=== PATIENT | female | born 1985 | race Caucasian/White ===

== ENCOUNTER 2016-08-24 14:15 | Observation (INO) | payer BC ==
[2016-08-24] MEDS ORDERED: SODIUM CHLORIDE 1,000 ML IV ONE (14:33)
--- NOTE | 2016-08-24 14:35 | PDOC ---
History of Present Illness - General Chief Complaint: Head/Neck problem Stated Complaint: NUMBNESS Time Seen by Provider: 08/24/16 14:33 History Source: Patient Exam Limitations: No Limitations - History of Present Illness Initial Comments: 08/24/16 14:35 31y F no pmhx presents with complaint of b/l hand numbness x 1 month. pt states she has been having discomfort in her hands b/l worse in the evenings and sometimes worsened positionally, there is no associated weakness, numbness/ tingling/weakness of other areas on her legs or face. pt reports similar episodes of this in the past, for approx 2 weeks this past dec and occasionally previously. The pt deneis recent illness, fever/chills, cp, sob, palpitations, vomiting, vision changes, urinary or bowel incontinence. no known familial neurlogic history Past History - Past Medical History Allergies/Adverse Reactions: Allergies Allergy/AdvReac Type Severity Reaction Status Date / Time No Known Allergies Allergy Verified 08/24/16 15:06 Home Medications: Ambulatory Orders Duloxetine HCl [Cymbalta] 120 mg PO DAILY 08/24/16 Prazosin HCl [Minipress] 6 mg PO HS 08/24/16 Other medical history: denies - Psycho/Social/Smoking Cessation Hx Anxiety: No Suicidal Ideation: No Smoking History: Current every day smoker Have you smoked in the past 12 months: Yes Number of Cigarettes Smoked Daily: 3 Information on smoking cessation initiated: No Hx Alcohol Use: No Drug/Substance Use Hx: No Review of Systems - Review of Systems Able to Perform ROS?: Yes Comments:: 08/24/16 14:39 Constitutional - no reported Fever, Chills, weakness, HEENT: no reported vision changes, sore throat Respiratory: no reported cough, sob, hemoptysis Cardiac: no reported chest pain, palpitations, light headedness, leg swelling Abd/GI: + nausea, no reported abd pain, vomiting, blood per rectum, melena, diarrhea : no reported dysuria, frequency, discharge Musculskelatal - no reported back pain, joint swelling skin - no reported bruising, erythema, rash neurological: +b/l hand numbness/tingling no reported headache, ataxia, weakness hematologic: no reported anemia, easy bruising, easy bleeding *Physical Exam - Vital Signs Last Vital Signs Temp Pulse Resp BP Pulse Ox 98.1 F 107 H 20 133/120 100 08/24/16 14:27 08/24/16 14:27 08/24/16 14:27 08/24/16 14:27 08/24/16 14:27 - Physical Exam Comments: 08/24/16 15:18 GENERAL: The patient is awake, alert, and fully oriented, Nontoxic - in no acute distress. HEAD: Normocephalic, atraumatic. EYES: extraocular movements intact, sclera anicteric, conjunctiva clear. ENT: Normal voice, Moist mucous membranes. NECK: Normal range of motion, supple LUNGS: Breath sounds equal, clear to auscultation bilaterally. No wheezes, no rhonchi, no rales. HEART: Regular rate and rhythm, normal S1 and S2 without murmur, rub or gallop. ABDOMEN: Soft, nontender, normoactive bowel sounds. No guarding, no rebound. . No CVA tenderness EXTREMITIES: Normal range of motion, no edema. No clubbing or cyanosis. No cords, erythema, or tenderness. No signs of muscle atrophy NEUROLOGICAL: No facial assymetry, Normal speech, PSYCH: Normal mood, normal affect. SKIN: Warm, Dry, normal turgor, NEURO: Mental status: The patient is oriented x3. Cranial nerves: Cranial nerves II through XII are intact Motor: The upper extremities are 5 over 5 in all muscle groups. The lower extremities are 5 over 5 in all muscle groups. Negative pronator drift Sensation: Sensation is intact to light touch throughout. Cerebellar: [id number] is normal in both upper extremities. rapid alternating movements are normal. Reflexes: 2+ patellar reflexes, 2+ R bicep reflex 1+ L bicep reflex Gait: Normal. Negative spurlings test Heart Score/ECG Review - ECG Impressions Comment:: 08/24/16 15:20 Twelve-lead EKG was performed and reviewed by me. There is normal sinus rhythm with a normal rate. Rate of 71 The axis is normal. The intervals are normal. There is normal R wave progression There are no ST or T wave abnormalities. Impression: Normal twelve-lead EKG ED Treatment Course - LABORATORY CBC & Chemistry Diagram: 08/25/16 06:15 08/25/16 06:15 Medical Decision Making - Medical Decision Making 08/24/16 15:21 31y F presents with intermittent episodes of hand tinging/numbness lasting for usually weeks/months at a time. on exam the pt in no distress, vitals noted for mild tachycardia, neuro exam unremarkable differential includes possible cervical radiculopathy vs metabolic derangement, consider possible ms will obtain blood work, ct cspine will reassess 08/24/16 16:02 ct spine unremarkable for stenosis or herniations cbc unremarkable labs reviewed and are unremarkable case dw np. sainz agreed with admission for further management stable for med surg will admit under dr. acuña service Case discussed in detail with admitting physician including history, physical exam and ancillary studies. Admitting physician has assumed care for the patient, will follow all pending diagnostics and will complete the evaluation and treatment. *DC/Admit/Observation/Transfer Diagnosis at time of Disposition: Bilateral hand numbness - Discharge Dispostion Condition at time of disposition: Stable Admit: Yes
[2016-08-24 14:54] LABS: BASOPHIL 0.9 % (0-2.0); EOSINOPHIL 2.4 % (0-4.5); MCH 32.3 pg (25.7-33.7); MEAN CELL VOLUME 94.8 fl (80-96); MEAN PLT VOLUME 7.7 fl (7.5-11.1); NEUTROPHILS 50.8 % (42.8-82.8); PLATELET COUNT 269 K/MM3 (134-434); RDW 12.7 % (11.6-15.6); WHITE BLOOD COUNT 7.1 K/mm3 (4.0-10.0)
[2016-08-24 14:57] VITALS: BMI 32.5
[2016-08-24 15:11] LABS: URINE APPEARANCE SLCLOUDY; URINE BILIRUBIN NEGATIVE (NEGATIVE); URINE BLOOD NEGATIVE (NEGATIVE); URINE COLOR AMBER; URINE GLUCOSE (UA) NEGATIVE (NEGATIVE); URINE KETONE NEGATIVE (NEGATIVE); URINE LEUK ESTERASE NEGATIVE (NEGATIVE); URINE NITRITE NEGATIVE (NEGATIVE); URINE PROTEIN NEGATIVE (NEGATIVE); URINE UROBILINOGEN NEGATIVE E.U./dl (0.2-1.0)
--- NOTE | 2016-08-24 15:29 | HP ---
CHIEF COMPLAINT: Hand numbness PCP: Located in [place], [place]. Last seen one year ago. HISTORY OF PRESENT ILLNESS: This is a 31 year old female with a history of anxiety, depression, and PTSD. She was previously on midodrine for hypotension, but this has been discontinued and she has been cleared by a air quality specialist. She presents today complaining of bilateral hand numbness and tingling. This symptom has been present intermittently for about two years, but has been worse for the past month and a half. Symptoms are worst at night; she reports sometimes waking up and "not being able to feel my hands at all." She also has intermittent pain in the joints of her fingers and painful pins and needles sensation. She has not had numbness/tingling in any other areas of the body. Symptoms are worse when holding a book. Episodes typically last one hour and resolve spontaneously. She denies headache, focal weakness, slurred speech, and visual changes. She has not had fevers/chills, bodyaches or weight loss. She reports fatigue. She has occasional vertigo, especially while on stairs or escalators. She does fall frequently, but states that she has always been "clumsy". She believes that she has occasional difficulty with word-finding. She denies urinary symptoms. She has alternate diarrhea and constipation, with two recent episodes of incontinence of stool. She has chronic neck/upper back pain which has never been evaluated. 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 No known family history of neurologic disorders. Allergies No Known Allergies Allergy (Verified 08/24/16 15:06) HOME MEDICATIONS: Home Medications Medication Instructions Recorded Duloxetine HCl [Cymbalta] 120 mg PO DAILY 08/24/16 Prazosin HCl [Minipress] 6 mg PO HS 08/24/16 REVIEW OF SYSTEMS CONSTITUTIONAL: Absent: fever, chills, diaphoresis, generalized weakness, malaise, loss of appetite, weight change HEENT: Absent: rhinorrhea, nasal congestion, throat pain, throat swelling, difficulty swallowing, mouth swelling, ear pain, eye pain, visual changes CARDIOVASCULAR: Absent: chest pain, syncope, palpitations, irregular heart rate, lightheadedness , peripheral edema RESPIRATORY: Absent: cough, shortness of breath, dyspnea with exertion, orthopnea, wheezing, stridor, hemoptysis GASTROINTESTINAL: Nausea, worse in morning x several years. Alternate diarrhea/ constipation with two recent episodes of fecal incontinence. Absent: abdominal pain, abdominal distension, vomiting, melena, hematochezia GENITOURINARY: Absent: dysuria, frequency, urgency, hesitancy, hematuria, flank pain, genital pain MUSCULOSKELETAL: Intermittent pain in fingers. Chronic neck/upper back pain. Absent: joint swelling SKIN: Absent: rash, itching, pallor HEMATOLOGIC/IMMUNOLOGIC: Absent: easy bleeding, easy bruising, lymphadenopathy, frequent infections ENDOCRINE: Absent: unexplained weight gain, unexplained weight loss, heat intolerance, cold intolerance NEUROLOGIC: See HPI. PSYCHIATRIC: Anxiety, depression, PTSD. Absent: suicidal or homicidal ideation, hallucinations. PHYSICAL EXAMINATION Vital Signs - 24 hr 08/24/16 08/24/16 14:27 15:08 Temperature 98.1 F Pulse Rate 107 H Pulse Rate [ 71 Apical] Respiratory 20 Rate Blood Pressure 133/120 O2 Sat by Pulse 100 Oximetry (%) GENERAL: Awake, alert, and fully oriented, in no acute distress. HEAD: Normal with no signs of trauma. EYES: Pupils equal, round and reactive to light, extraocular movements intact, sclera anicteric, conjunctiva clear. No lid lag. EARS, NOSE, THROAT: Ears normal, nares patent, oropharynx clear without exudates. Moist mucous membranes. NECK: Normal range of motion, supple without lymphadenopathy, JVD, or masses. LUNGS: Breath sounds equal, clear to auscultation bilaterally. No wheezes, and no crackles. No accessory muscle use. HEART: Regular rate and rhythm, normal S1 and S2 without murmur, rub or gallop. ABDOMEN: Soft, nontender, not distended, normoactive bowel sounds, no guarding, no rebound, no masses. No hepatomegaly or splenomegaly. MUSCULOSKELETAL: Normal range of motion at all joints. No bony deformities or tenderness. No CVA tenderness. UPPER EXTREMITIES: 2+ pulses, warm, well-perfused. No cyanosis. No clubbing. No peripheral edema. LOWER EXTREMITIES: 2+ pulses, warm, well-perfused. No calf tenderness. No peripheral edema. NEUROLOGICAL: Cranial nerves II-XII intact. Normal speech. Normal gait. Mild intention tremor. Negative Carmine's sign. Normoreflexic. 5/5 upper and lower extremity strength bilaterally, no saddle anesthesia. Midline vertebral tenderness C5/6. PSYCHIATRIC: Cooperative. Good eye contact. Appropriate mood and affect. SKIN: Warm, dry, normal turgor, no rashes or lesions noted, normal capillary refill. Laboratory Results - last 24 hr 08/24/16 08/24/16 14:40 15:00 WBC 7.1 RBC 4.59 Hgb 14.8 Hct 43.5 MCV 94.8 MCHC 34.0 RDW 12.7 Plt Count 269 MPV 7.7 Neutrophils % 50.8 Lymphocytes % 38.4 Monocytes % 7.5 Eosinophils % 2.4 Basophils % 0.9 Urine Color Genie Urine Appearance Slcloudy Urine pH 7.0 Ur Specific [place] 1.025 Urine Protein Negative Urine Glucose (UA) Negative Urine Ketones Negative Urine Blood Negative Urine Nitrite Negative Urine Bilirubin Negative Urine Urobilinogen Negative Ur Leukocyte Esterase Negative Urine HCG, Qual Negative ASSESSMENT/PLAN: 31 year old female with multiple symptoms including intermittent bilateral hand numbness. Problem List - Problem (1) Bilateral hand numbness Assessment/Plan: -Relapsing-remitting character; concern for new diagnosis MS/MS flare -Check electrolytes, B12, folate, Vit D, TSH, Lyme, RPR -Brain MRI with and without contrast to rule out demyelinating process -Obtain cervical spine CT given midline tenderness on exam -Neurology consultation requested Code(s): R20.0 - ANESTHESIA OF SKIN (2) Depression with anxiety Assessment/Plan: -Continue Cymbalta, Prazosin Code(s): F41.8 - OTHER SPECIFIED ANXIETY DISORDERS (3) DVT prophylaxis Assessment/Plan: -Low risk (short expected length of stay -Early ambulation Code(s): FEB1953 - Visit type - Emergency Visit Emergency Visit: Yes Care time: The patient presented to the Emergency Department on the above date and was hospitalized for further evaluation of their emergent condition. - New Patient This patient is new to me today: Yes Date on this admission: 08/24/16 - Critical Care Critical Care patient: No
[2016-08-24] MEDS ORDERED: ACETAMINOPHEN 325 MG TABLET (FP) PO PRN (15:30)
[2016-08-24] MEDS ORDERED: ONDANSETRON 4 MG/2 ML VIAL IVPB PRN (15:30)
[2016-08-24 15:48] LABS: ALBUMIN 3.8 g/dl (3.4-5.0); ANION GAP 9 (8-16); BILIRUBIN,TOTAL 0.2 mg/dL (0.2-1.0); CALCIUM 9.4 mg/dL (8.5-10.1); CO2 27 mmol/L (21-32); CREATININE 0.6 mg/dL (0.55-1.02); GLUCOSE,RANDOM 100 mg/dL (74-106); MAGNESIUM 2.3 mg/dL (1.8-2.4); SGOT/AST 20 U/L (15-37); SGPT/ALT 23 U/L (12-78); TOT PROT 6.7 g/dl (6.4-8.2)
[2016-08-24 16:01] LABS: ALK PHOS 70 U/L (45-117)
[2016-08-24] MEDS ORDERED: PT OWN MED DRAWER 7, Y5N ONE (18:32)
[2016-08-24] MEDS: NICOTINE 7 MG/24 HOURS TOPICAL PATCH TD SCH (21:57)
[2016-08-24] MEDS ORDERED: PRAZOSIN HCL 2 MG CAPSULE PO SCH (22:00)
[2016-08-25 08:23] LABS: BASOPHIL 0.5 % (0-2.0); EOSINOPHIL 2.6 % (0-4.5); MCH 32.2 pg (25.7-33.7); MEAN CELL VOLUME 94.6 fl (80-96); MEAN PLT VOLUME 8.1 fl (7.5-11.1); NEUTROPHILS 54.8 % (42.8-82.8); PLATELET COUNT 228 K/MM3 (134-434); WHITE BLOOD COUNT 6.6 K/mm3 (4.0-10.0)
[2016-08-25 09:02] LABS: ALBUMIN 3.3 g/dl (3.4-5.0); ALK PHOS 57 U/L (45-117); ANION GAP 11 (8-16); BILIRUBIN,TOTAL 0.5 mg/dL (0.2-1.0); CALCIUM 8.6 mg/dL (8.5-10.1); CO2 27 mmol/L (21-32); COCKROFT - GAULT 223.8305; CREATININE 0.5 mg/dL (0.55-1.02); GLUCOSE,RANDOM 88 mg/dL (74-106); MAGNESIUM 2.3 mg/dL (1.8-2.4); SGOT/AST 15 U/L (15-37); SGPT/ALT 20 U/L (12-78); TOT PROT 5.6 g/dl (6.4-8.2)
[2016-08-25] MEDS ORDERED: PT OWN MED DRAWER 7, Y5N ONE (09:30)
[2016-08-25] MEDS ORDERED: DULoxetine HCL 30 MG CAPSULE.DR (FP) PO ONE (09:30)
[2016-08-25] MEDS ORDERED: DULoxetine HCL 60 MG CAPSULE.DR PO SCH (10:00)
--- NOTE | 2016-08-25 11:08 | EKG ---
Test Reason : Blood Pressure : / mmHG Vent. Rate : 071 BPM Atrial Rate : 071 BPM P-R Int : 124 ms QRS Dur : 082 ms QT Int : 380 ms P-R-T Axes : 015 032 030 degrees QTc Int : 412 ms NORMAL SINUS RHYTHM NORMAL ECG NO PREVIOUS ECGS AVAILABLE Confirmed by LILIANE JETT MD ([id number]) on 08/25/2016 11:08:28 AM Referred By: Confirmed By:LILIANE JETT MD
--- NOTE | 2016-08-25 12:39 | CONSULT ---
Consult - text type - Consultation Consultation Note: Neurology History of Present Illness 31y F no pmhx presents with complaint of b/l hand numbness which has been occuring episodically for an extended period of time. She has been having discomfort in her hands b/l worse in the evenings and sometimes worsened positionally. She has not had any extensive workup and presented to the ER as symptoms have been recurrent and worriesome. Given the distribution and symptoms , I agree with having MRI brain and C spine w and w/o contrast to evaluate for MS. Will add EMG/NCS to evaluate for CTS vs peripheral neuropathy as well. B12 obtained, 394 which is within normal range. Goal is >400, but 394 is acceptable. Folate was not deficient. Past History - Past Medical History Allergies/Adverse Reactions: Allergies Allergy/AdvReac Type Severity Reaction Status Date / Time No Known Allergies Allergy Verified 08/24/16 15:06 Home Medications: Ambulatory Orders Duloxetine HCl [Cymbalta] 120 mg PO DAILY 08/24/16 Prazosin HCl [Minipress] 6 mg PO HS 08/24/16 Other medical history: denies - Psycho/Social/Smoking Cessation Hx Anxiety: No Suicidal Ideation: No Smoking History: Current every day smoker Have you smoked in the past 12 months: Yes Number of Cigarettes Smoked Daily: 3 Information on smoking cessation initiated: No Hx Alcohol Use: No Drug/Substance Use Hx: No Review of Systems Constitutional - no reported Fever, Chills, weakness, HEENT: no reported vision changes, sore throat Respiratory: no reported cough, sob, hemoptysis Cardiac: no reported chest pain, palpitations, light headedness, leg swelling Abd/GI: + nausea, no reported abd pain, vomiting, blood per rectum, melena, diarrhea : no reported dysuria, frequency, discharge Musculskelatal - no reported back pain, joint swelling skin - no reported bruising, erythema, rash neurological: +b/l hand numbness/tingling no reported headache, ataxia, weakness hematologic: no reported anemia, easy bruising, easy bleeding *Physical Exam Vital Signs Temperature 98.5 F 08/25/16 09:00 Pulse Rate 75 08/25/16 09:00 Respiratory Rate 20 08/25/16 09:00 Blood Pressure 134/55 08/25/16 09:00 O2 Sat by Pulse Oximetry (%) 98 08/25/16 09:00 GENERAL: The patient is awake, alert, and fully oriented, Nontoxic - in no acute distress. HEAD: Normocephalic, atraumatic. EYES: extraocular movements intact, sclera anicteric, conjunctiva clear. ENT: Normal voice, Moist mucous membranes. NECK: Normal range of motion, supple LUNGS: Breath sounds equal, clear to auscultation bilaterally. No wheezes, no rhonchi, no rales. HEART: Regular rate and rhythm, normal S1 and S2 without murmur, rub or gallop. ABDOMEN: Soft, nontender, normoactive bowel sounds. No guarding, no rebound. . No CVA tenderness EXTREMITIES: Normal range of motion, no edema. No clubbing or cyanosis. No cords, erythema, or tenderness. No signs of muscle atrophy NEUROLOGICAL: No facial assymetry, Normal speech, PSYCH: Normal mood, normal affect. SKIN: Warm, Dry, normal turgor, NEURO: Mental status: The patient is oriented x3. Cranial nerves: Cranial nerves II through XII are intact Motor: The upper extremities are 5 over 5 in all muscle groups. The lower extremities are 5 over 5 in all muscle groups. Negative pronator drift Sensation: Sensation is intact to light touch throughout. Cerebellar: [id number] is normal in both upper extremities. rapid alternating movements are normal. Reflexes: 2+ patellar reflexes, 2+ R bicep reflex 1+ L bicep reflex CBCD WBC 6.6 K/mm3 (4.0-10.0) 08/25/16 06:15 RBC 4.22 M/mm3 (3.60-5.2) 08/25/16 06:15 Hgb 13.6 GM/dL (10.7-15.3) 08/25/16 06:15 Hct 39.9 % (32.4-45.2) 08/25/16 06:15 MCV 94.6 fl (80-96) 08/25/16 06:15 MCHC 34.0 g/dl (32.0-36.0) 08/25/16 06:15 RDW 13.0 % (11.6-15.6) 08/25/16 06:15 Plt Count 228 K/MM3 (134-434) 08/25/16 06:15 MPV 8.1 fl (7.5-11.1) 08/25/16 06:15 CMP Sodium 142 mmol/L (136-145) 08/25/16 06:15 Potassium 4.1 mmol/L (3.5-5.1) 08/25/16 06:15 Chloride 104 mmol/L (98-107) 08/25/16 06:15 Carbon Dioxide 27 mmol/L (21-32) 08/25/16 06:15 Anion Gap 11 (8-16) 08/25/16 06:15 BUN 12 mg/dL (7-18) D 08/25/16 06:15 Creatinine 0.5 mg/dL (0.55-1.02) L 08/25/16 06:15 Creat Clearance w eGFR > 60 (>60) 08/25/16 06:15 Calcium 8.6 mg/dL (8.5-10.1) 08/25/16 06:15 Total Bilirubin 0.5 mg/dL (0.2-1.0) D 08/25/16 06:15 AST 15 U/L (15-37) D 08/25/16 06:15 ALT 20 U/L (12-78) 08/25/16 06:15 Alkaline Phosphatase 57 U/L (45-117) 08/25/16 06:15 Total Protein 5.6 g/dl (6.4-8.2) L 08/25/16 06:15 Albumin 3.3 g/dl (3.4-5.0) L 08/25/16 06:15 Medical Decision Making 31y F no pmhx presents with complaint of b/l hand numbness which has been occuring episodically for an extended period of time. She has been having discomfort in her hands b/l worse in the evenings and sometimes worsened positionally. She has not had any extensive workup and presented to the ER as symptoms have been recurrent and worriesome. Given the distribution and symptoms , I agree with having MRI brain and C spine w and w/o contrast to evaluate for MS. Will add EMG/NCS to evaluate for CTS vs peripheral neuropathy as well. B12 obtained, 394 which is within normal range. Goal is >400, but 394 is acceptable. Folate was not deficient. Further mgmt depending on results. IF EMG not able to be done today as inpatient, outpatient can be considered.
--- NOTE | 2016-08-25 13:30 | PN ---
Physical Exam: SUBJECTIVE: Patient seen and examined Pt is awake, alert and fully oriented No s/s of acute distress Pt is complaining of numbness, pain worse at night in fingers of both hands Also complaining of hand/finger stiffness worse in am complaining dizziness and vertigo worse when on stair OBJECTIVE: GENERAL: The patient is awake, alert, and fully oriented, in no acute distress. HEAD: Normal with no signs of trauma. ENT: Ears normal, nares patent, oropharynx clear without exudates, moist mucous membranes. NECK: Trachea midline, full range of motion, supple. LUNGS: Breath sounds equal, clear to auscultation bilaterally, no wheezes, no crackles, no accessory muscle use. HEART: Regular rate and rhythm, S1, S2 without murmur, rub or gallop. ABDOMEN: Soft, nontender, nondistended, normoactive bowel sounds, no guarding, no rebound, no hepatosplenomegaly, no masses. EXTREMITIES: 2+ pulses, warm, well-perfused, no edema. mild joint swelling in fingers, no tenderness, no numbness or tingling, normal sensation to light tough , normal strength in b/l hands and digits. NEUROLOGICAL: Cranial nerves II through XII grossly intact. Normal speech, gait not observed. negative phallen test, negative tinel test. C6 tenderness on cervical spine palpation PSYCH: Normal mood, normal affect. SKIN: Warm, dry, normal turgor, no rashes or lesions noted Active Medications Generic Name Dose Route Start Last Admin Trade Name Freq PRN Reason Stop Dose Admin Acetaminophen 650 mg 08/24/16 15:30 Tylenol - PO Q4H PRN FEVER OR PAIN Duloxetine HCl 120 mg 08/25/16 10:00 08/25/16 09:34 Cymbalta - PO 120 mg DAILY MARIELA Administration Nicotine 7 mg 08/24/16 16:45 08/24/16 21:57 Nicoderm Patch - TD 7 mg DAILY MARIELA Administration Ondansetron HCl 4 mg 08/24/16 15:30 Zofran Injection IVPB Q6H PRN NAUSEA Prazosin HCl 6 mg 08/24/16 22:00 08/24/16 22:00 Minipress - PO 6 mg HS MARIELA Administration CBC, BMP 08/25/16 06:15 08/25/16 06:15 ASSESSMENT/PLAN: 31 year old female with no significant pmh present with intermittent numbness in fingers and dizziness/vertigo for the past 2 years that has been worsened over the past 2 weeks. B/L hand numbness r/o carpal tunnel syndrome, cervical radiculopathy, Multiple sclerosis, rheumatological conditions including rheumatoid arthritis Tinel test is negative, Phllen test is negative, no atrophic thenar eminence which makes Carpal tunnel unlikely CT neck showed no herniation, no stenosis which make cervical radiculopathy unlikely plus symptoms does follow any particular nerve pattern normal electrolytes, Normal folate, Normal B12, TSh normal, Lyme and RPR pending No optic neuritis, No internuclear ophtalmoplegia but pt is having sensory issue in upper ext, pt is having gait, balance disturbance and vertigo so worry about Multiple sclerosis MRI brain and cervical Spine neurology consulted Dr Ria Patricio consulted EMG, NCS Outpatient EMG/NCS if unable to do as inpatient Swelling of small joints, stiffness in am, it is questionable if it last more than 1 hour or not, b/l hands/fingers, symmetrical pain and numbness, make rheumatological conditions more likely Outpatient follow up with Dr Khoury Depression/Anxiety On cymbalta DVT prophylaxis: SCD FEN Fluid: none electrolytes: normal Nutrition: regular diet Disposition: keep in medsur pending MRI Visit type - Emergency Visit Emergency Visit: Yes ED Registration Date: 08/25/16 Care time: The patient presented to the Emergency Department on the above date and was hospitalized for further evaluation of their emergent condition. - New Patient This patient is new to me today: Yes Date on this admission: 08/25/16 - Critical Care Critical Care patient: No - Discharge Referral Referred to [facility] Med P.C.: No
--- NOTE | 2016-08-25 14:09 | PN ---
Teaching Attending Note Name of Resident: Srinivasa Duval ATTENDING PHYSICIAN STATEMENT I saw and evaluated the patient. I reviewed the resident's note and discussed the case with the resident. I agree with the resident's findings and plan as documented. SUBJECTIVE:31yo F c/o numbness of all her fingers from MCP joint to fingertips almost every night for the past 2 years. assoc with pain that self resolves. also states she has joint stiffness and swelling in the mornings lasting about 15 minutes. also has neck pain worse on palpation. denies Cp, SOB,fever, chills , numbness/tingling of lower extremities. blurred vision or intermittent loss of vision. she states she is "clumsy" but does not report falling. no family hx of MS or early OA OBJECTIVE: Last Vital Signs Temp Pulse Resp BP Pulse Ox 98.5 F 75 20 134/55 98 08/25/16 09:00 08/25/16 09:00 08/25/16 09:00 08/25/16 09:00 08/25/16 09:00 General NAD CV S1 S2 RRR no murmur/rub/gallop Lungs CTA B/L no wheezing/rales/rhonchi Extremities: swelling of 2nd digit of R hand. no tenderness. no deformities noted of the fingers. sensation grossly intact. pulses 2+ Back C6 bone point tenderness, no muscle tenderness or spasm ASSESSMENT AND PLAN: 31yo F with PMH anxiety presented to the ER and was admitted for further evaluation of their emergent condition 1. B/L hand numbness- concern for MS. presentation does not support radiculopathy. MRI of brain and neck pending. appreciate neuro recommendations. EMG to also further evaluate. if all negative may need workup to r/o early OA due to joint stiffness and swelling that resolves in less than 30 minutes. will need to consider workup as outpatient if MRI and EMG studies negative. RPR negative. lyme pending 2. continuous nicotine dependence- nicotine patch. counseled on importance of tobacco cessation 3. anxiety- cont home medications 4. d/c planning today pending MRI studies
[2016-08-25] MEDS: NICOTINE 7 MG/24 HOURS TOPICAL PATCH TD SCH (14:59)
[2016-08-25 20:22] VITALS: BP 131/80; PULSE 100; TEMP 97.7
--- NOTE | 2016-08-26 07:22 | DS ---
Physical Exam: SUBJECTIVE: Patient seen and examined OBJECTIVE: Vital Signs Period Temp Pulse Resp BP Sys/Hayden Pulse Ox Last 24 Hr 97.7 F-98.6 F 72-100 18-20 113-131/71-80 PHYSICAL EXAM LABS CBC, BMP 08/25/16 06:15 08/25/16 06:15 MRI brain 08/25/16: Findings consistent with a venous angioma the left frontal lobe with a draining vein trace of the left anterior frontal high convexity. Otherwise, no mass lesion, acute infarct, intracranial hemorrhage, demyelinating plaques or abnormal intracranial enhancement is identified. Correlate for further evaluation and follow-up. 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 Multilevel mild disc bulge, as described above impinging left C4 nerve root at C3-C4 level , slightly narrowing the foramina at C4-C5 level without gross nerve root impingement, probably slightly impinging left C6 nerve root at C5-C6 level as well as reaching and possibly slightly impinging right C7 nerve root at C6-C7 level C7-T1 and T1-T2 mild left lateral disc bulge slightly narrowing the foramina at both levels without gross nerve root impingement. Normal signal intensity in the cervical and included upper thoracic cord without abnormal enhancement HOSPITAL COURSE: Date of Admission:08/25/16 31 year old female with pmh of anxiety and depression present with intermittent numbness in fingers and dizziness/vertigo for the past 2 years that has been worsened over the past 2 weeks. Pt has B/L hand numbness. r/o carpal tunnel syndrom however Tinel test is negative, Phallen test is negative, no atrophic thenar eminence which makes Carpal tunnel unlikely. R/o Cevical radiculopathy pt has numbness in hands, cervical spine tenderness, even if CT neck is negative , MRI head/neck will provide better picture. Considered Multiple sclerosis, however No optic neuritis, No internuclear ophtalmoplegia but pt is having sensory issue in upper ext, pt is having gait, balance disturbance and vertigo so worry about Multiple sclerosis r/o rheumatological conditions including rheumatoid arthritis swelling of small joints, stiffness in am, it is questionable if it last more than 1 hour or not, b/l hands/fingers, symmetrical pain and numbness, make rheumatological conditions more likely . Normal electrolytes, Normal folate, Normal B12, TSh normal, Lyme and RPR normal. Neurology consulted Dr Rollins, he recommend MRI head and Neck, Dr Patricio consult for EMG, NCS. MRI head and Neck done, pending result. If everything is negative will need to consult Dr Khoury as outpatient for possible rheumatological disorder. Date of Discharge: 08/26/16 08/27/16 MRI cervical Spine showed C4 root impingement with slight C6 and C7 impingement. Pt is to have EMG, NCS and Follow Up with neurology. Minutes to complete discharge: 40 Discharge Summary Reason For Visit: BILATERAL HAND NUMBNESS Condition: Stable - Instructions Diet, Activity, Other Instructions: Discharge home Resume Home medications resume home diet Follow Up with Dr Rollins, neurology within 1 week You had an MRI brain and cervical spine, You can discuss the result with Dr Rollins in his office Follow Up with Dr Patricio within 1 week You will need to do a test called nerve conduction study and electromyography to help find the cause of your symptoms Follow up with Dr Khoury, rheumatology, if you continue to have symptoms and all other studies are negative. Some of your symptoms could be from a rheumatological condition such as rheumatoid arthritis, osteoarthritis or others, You will need to be evaluated at his office. Referrals: Braeden Khoury MD [Staff Physician] - 1 Week Giuseppe Rollins MD [Staff Physician] - 1 Week Pablo Patricio MD [Staff Physician] - 1 Week Disposition: HOME - Home Medications Comprehensive Discharge Medication List: Ambulatory Orders Duloxetine HCl [Cymbalta] 120 mg PO DAILY 08/24/16 Prazosin HCl [Minipress] 6 mg PO HS 08/24/16 This patient is new to me today: Yes Emergency Visit: Yes ED Registration Date: 08/25/16 Care time: The patient presented to the Emergency Department on the above date and was hospitalized for further evaluation of their emergent condition. Critical Care patient: No - Discharge Referral Referred to [facility] Med P.C.: No
--- NOTE | 2016-08-27 15:22 | HOSP ---
Subjective - Review of Symptoms Subjective: called pt to notify of MRI results with disc bulging on C4 nerve root. could be related to symptoms. Encouraged to have EMG done to confirm if this is etiology of numbness. Answered all questions. verbalized understanding and agreement. Physical Examination Vital Signs: Vital Signs Temperature 97.7 F 08/25/16 17:00 Pulse Rate 100 H 08/25/16 17:00 Respiratory Rate 20 08/25/16 17:00 Blood Pressure 131/80 08/25/16 17:00 O2 Sat by Pulse Oximetry (%) 98 08/25/16 09:00
== END 2016-08-25 21:45 | disposition home or self-care (01) ==
LOC: JER 14:15 → OBSVTOIN 16:01 → JERBED 16:01 → UNDOADMOB 16:01 → INTOOBSV 16:01 → JERBED 16:08 → UNDOADMOB 16:08 → JERBED 17:35 → J8W 17:35 → JERBED 08-25 12:20 → J8W 08-25 12:20
PROVIDERS: ADMIT Internal Medicine; ATTEND Internal Medicine
PROC: 3E0337Z Introduction of Electrolytic and Water Balance Substance into Peripheral Vein, Percutaneous Approach (ICD-10-PCS; principal; 2016-08-25)
DX: R20.0 Anesthesia of skin (principal); F17.210 Nicotine dependence, cigarettes, uncomplicated; R00.0 Tachycardia, unspecified; F43.10 Post-traumatic stress disorder, unspecified; F41.8 Other specified anxiety disorders
CPT/HCPCS: 36415; 70553-TC; 71020-TC; 72125-TC; 72156-TC; 80053; 81003; 82306; 82607; 82746; 83735; 84703; 85025; 86593; 86618; 93005; 93010; 95860-TC; 99285-25; A9576; G0378